=== PATIENT | male | born 1995 | race Caucasian/White ===

== ENCOUNTER → 2019-03-25 | Outpatient (CLI) | payer OTHER ==
--- NOTE | 2019-03-25 10:20 | REP ---
MAXILLOFACIAL CT STUDY WITHOUT CONTRAST: HISTORY: Chronic maxillary sinusitis. CT FINDINGS: Preliminary digital director supplier quality radiographs are unremarkable. Maxillary sinuses are clear, except for minimal mucosal thickening along their inferior kc bilaterally. Ethmoid and sphenoid aeration is clear. The frontal sinuses are clear. Mastoid aeration is normal and symmetric. There is no other CT evidence of paranasal sinusitis at this time. There are Lexii cells present bilaterally, but ostiomeatal complexes are patent on both sides. Nasal turbinate soft tissues are unremarkable. No nasal polyp is seen. There is slight leftward deviation of the anteroinferior nasal septum with a bony septal beak. Bony orbital margins are intact. No intraorbital abnormality is seen. Deep facial soft tissues and visualized intracranial soft tissues are unremarkable. IMPRESSION: Leftward nasal septal beak anteroinferiorly. There is minimal mucosal thickening in the inferior wall of the maxillary sinus on each side. Ostiomeatal complexes are patent. No other CT evidence of paranasal sinusitis. Electronically Signed by Adrian Stanley MD 03/25/2019 04:50 P
== END ==
LOC: M RAD 07:25
PROVIDERS: ATTEND Otolaryngology
DX: J32.0 Chronic maxillary sinusitis (principal); J34.2 Deviated nasal septum

== ENCOUNTER 2019-05-08 06:35 | Day surgery (SDC) | payer OTHER ==
[~2019-05-08] VITALS: Ht 185.4 cm; Wt 85.7 kg
[~2019-05-08 06:35] MED LIST: ALL10TAB28 PO; LIDOCAINE 1% MDV 20ML VIAL SQ PRN
[2019-05-08] MEDS ORDERED: LR 1,000 ML IV ONE (07:00)
[2019-05-08] MEDS ORDERED: LIDOCAINE 2% INJ 100 MG/5 ML SDV (FOR ANES.) As Ordered ONE (07:08)
[2019-05-08] MEDS ORDERED: PROPOFOL 200 MG/20 ML VIAL As Ordered ONE (07:08)
[2019-05-08] MEDS ORDERED: ROCURONIUM BROMIDE 50 MG/5 ML VIAL As Ordered ONE (07:08)
[2019-05-08] MEDS ORDERED: dexameTHASONE 4 MG/ML 1ML VIAL (J1100) As Ordered ONE ×2 (07:10→08:25)
[2019-05-08] MEDS ORDERED: ONDANSETRON 4MG/2ML VIAL (J2405) As Ordered ONE (07:10)
[2019-05-08] MEDS ORDERED: MIDAZOLAM INJ 2 MG/2 ML VIAL (J2250) As Ordered ONE (07:48)
[2019-05-08] MEDS ORDERED: fentaNYL 250 MCG/5 ML INJECTION (J3010) As Ordered ONE (07:48)
[2019-05-08] MEDS ORDERED: METHYLENE BLUE 0.5% (5MG/ML) 10 ML AMP (PROVAYBLUE)(Q9968 PER 1MG) As Ordered ONE (07:51)
[2019-05-08] MEDS ORDERED: OXYMETAZOLINE NASAL SPRAY (AFRIN) As Ordered ONE (07:51)
[2019-05-08] MEDS ORDERED: LIDOCAINE W/EPINEPHRINE 1% 20ML VIAL As Ordered ONE (07:51)
[2019-05-08] MEDS ORDERED: SODIUM CHLORIDE 0.9% NASAL GEL 15GM (AYR) As Ordered ONE (07:51)
[2019-05-08] MEDS ORDERED: ACETAMINOPHEN 1000MG 100ML IV BTL (OFIRMEV) (J0131 PER 10MG) As Ordered ONE (08:30)
[2019-05-08] MEDS ORDERED: SUGAMMADEX SODIUM 500 MG/5 ML VIAL (BRIDION) As Ordered ONE (08:34)
[2019-05-08] MEDS ORDERED: HYDROmorphone HCL 2 MG/ML 1ML VIAL (J1170) As Ordered ONE (09:20)
[2019-05-08] MEDS ORDERED: LR 1,000 ML IV SCH (11:00)
[2019-05-08] MEDS ORDERED: HYDROMORPHONE HCL 0.5 MG/ 0.5 ML SYRINGE (J1170 PER 1) IV PRN (11:00)
[2019-05-08] MEDS ORDERED: fentaNYL 100 MCG/2 ML INJECTION (J3010) IV PRN (11:00)
[2019-05-08] MEDS ORDERED: PERCOCET 5MG/325MG TAB PO PRN (11:00)
[2019-05-08] MEDS ORDERED: ONDANSETRON 4MG/2ML VIAL (J2405) IV PRN (11:00)
[2019-05-08 12:00] VITALS: BP 111/66
--- NOTE | 2019-05-11 12:01 | RO ---
DATE OF PROCEDURE: 05/08/2019 PREOPERATIVE DIAGNOSIS: Nasal congestion, septal deviation and turbinate hypertrophy. POSTOPERATIVE DIAGNOSIS: Nasal congestion, septal deviation and turbinate hypertrophy. OPERATION PERFORMED: 1. Septoplasty. 2. Submucous Coblation of the inferior turbinates utilizing the Coblator Reflex 45 wand. SURGEON: Jose Espinal Jr., MD HEAD MACHINIST: ANESTHESIA: General via endotracheal tube. INDICATIONS FOR PROCEDURE: Severe nasal congestion. PROCEDURE IN DETAIL: With the patient in the supine position after being induced and intubated, prepped and draped in the usual fashion, the patient was decongested with topical Afrin, as well as was injection of initially 8 mL of 1% lidocaine, 1:100,000 epinephrine in the mucoperichondrium, mucoperiosteum regions. After this was done, and the patient was prepped and draped in usual fashion, the left hemitransfixion incision ensued. The mucoperichondrium, mucoperiosteum was elevated. There were significant adhesions, likely from scar tissue from previous fractures. The patient had severely deviated and thickened maxillary crest inferiorly, and also perpendicular plate of the ethmoid was very hard. After the mucoperichondrium and mucoperiosteum were elevated and adhesions were elevated with the caudal dissector, the bony cartilaginous junctions were . Attention was drawn to the using the [place] to try and separate the perpendicular plate of the ethmoid. This was very thick and very hard, and it was very difficult to get through safely. Great care was done. We actually had to get two instruments, as one seemed to be too dull to cut this area and keep it in the perpendicular plane. However, this was eventually done, and then the bony spur posteriorly on the right was eventually identified, also on the left as well. There was significant deviation of the maxillary crest over to the left inferiorly. This was dissected off the decussations along the floor of the maxillary crest. It was fairly thickened, approximately 4-5 mm. In anticipation of bleeding, because of the thickness and hardness, bone wax was obtained prior to removal of the portion of the maxillary crest. There was also an area prior to dissection to subluxed area that continued to bleed after injecting the lidocaine, and therefore, cautery with a flat blade and guarded tip was utilized to cauterize this area as it would not stop with just pressure or with the epinephrine or the Afrin in the left inferior aspect. The setting was at 20 coag, and this was spot coagulated until it stopped. Once the maxillary crest area was identified, and the bone wax was ready and placed on the back end of a Fackler, the patient had the Jovany-Middletons used to remove the bone that was deviating more to the left. There was a vilma pumping blood vessel through the maxillary crest. Bone wax was applied, which controlled it; cautery did not. Attention then was drawn to taking a little bit more away and, of course, started to bleed again, and then bone wax was used to control the bleeding. Once this was done, we were able to go posteriorly and dissect mucoperichondrium, mucoperiosteum bilaterally posteriorly. And utilizing a combination Jovany-Braulio, Jovany-[place] and [place], posterior septal perforation was removed. There was very thickened mucosa, which had a semipermanent curve on the inferior aspect on the left side. At this point, there was still some deviation of the cartilage to the right anteriorly. Part of this was removed leaving 1 cm x 1 cm strut caudally as well as inferiorly, and then the cartilage was reshaped and then placed back in. Also, there was part of the superior aspect of the septum that was deviating to the right, and again the [place] was used with some difficulty to remove some of this bone. The septum was placed back into the midline, and there was good nasal space on both sides. The part of the cartilage that had been removed had been placed and sutured transeptally with #3-0 chromic into proper position, followed by suturing of the two septal columellar stitches inferiorly. Once this was done, attention then was drawn to injecting another 2 mL in each inferior turbinate and lateralizing the inferior turbinates. And then utilizing the Coblator with setting 4, Coblate 2, coag 3, submucosal passes were placed in each inferior turbinate. Afrin was placed, bleeding was controlled. Mcwilliams nasal splints with straws were placed and sutured transseptally. Once this was done, small piece of NasoPore was trimmed and placed as well as inferiorly to help with any oozing that may develop later. At this point, the NasoPore was hydrated, and the nasal straws were irrigated and flushed and suctioned with saline. There were no problems. No complications. Bleeding was under control. Bleeding was approximately 20 mL. No complications. The patient was taken to the recovery room in satisfactory condition.
== END 2019-05-08 12:20 | disposition home or self-care (01) ==
LOC: M SDC 06:35
PROVIDERS: ATTEND Otolaryngology
DX: J34.2 Deviated nasal septum (principal); J34.3 Hypertrophy of nasal turbinates
CPT/HCPCS: 30520; 30802; 88300; J0131; J1100; J1170; J2250; J2405; J3010; Q9968